=== PATIENT | male | born 1995 ===

== ENCOUNTER → 2017-01-30 15:05 | Emergency (ER) | payer SELFPAY | END | disposition home or self-care (01) | LOC: OHEAST 15:05 → UCEAST 15:05 | DX: Z00.00 Encounter for general adult medical examination without abnormal findings (principal) ==

== ENCOUNTER 2017-05-04 20:15 | Emergency (ER) | payer OTHER ==
[2017-05-04 20:27] VITALS: BP 118/62
--- NOTE | 2017-05-04 20:45 | UC ---
Syncope/New Syncope HPI - History Of Current Complaint Chief Complaint: UCHeadInjury Stated Complaint: HEAD INJURY Time Seen by Provider: 05/04/17 20:24 Hx Obtained From: Patient Onset/Duration: Sudden Onset, Resolved Activity At Onset: Other - WAS DRINKING A SODA HAD HICUPS Timing: Seconds Frequency: Episodes x___ - 1, Episodes Lasting ____ (in Mins/Days/Weeks/Years) - 5 SECONDS Context: Witnessed Associated Head Trauma: Yes Aggravating Factor(s): Nothing Alleviating Factor(s): Nothing Associated Signs And Symptoms: Positive: Headache. Negative: Chest Pain, Diaphoresis, Dizzy, GI Blood Loss, Head Trauma (Remote), Head Trauma (Recent), Lightheadedness, Numbness, Palpitations, Seizure, Shortness Of Breath, Vomiting , Weakness - Allergies/Home Medications Allergies/Adverse Reactions: Allergies Allergy/AdvReac Type Severity Reaction Status Date / Time No Known Allergies Allergy Verified 05/04/17 20:27 Home Medications: Home Medications NK [No Home Medications Reported] 05/04/17 [History Confirmed 05/04/17] PMH/Surg Hx/FS Hx/Imm Hx - Additional Past Medical History Additional PMH: HX OF CONCUSSION X 4 - Surgical History Surgical History: Yes Surgery Procedure, Year, and Place: sinus polyps x4. tonsillectomy - Family History Known Family History: Negative: Blood Disorder - Social History Alcohol Use: Occasionally Substance Use Type: None Smoking Status (MU): Never Smoked Tobacco Type: Smokeless Tobacco Review of Systems Constitutional: Negative Skin: Negative Eyes: Negative ENT: Negative Respiratory: Negative Cardiovascular: Negative Is Patient Immunocompromised?: No All Other Systems Reviewed And Are Negative: Yes Physical Exam Triage Information Reviewed: Yes Appearance: Well-Appearing, No Pain Distress, Well-Nourished Vital Signs: Initial Vital Signs Temp 99.3 F 05/04/17 20:20 Pulse 94 05/04/17 20:20 Resp 17 05/04/17 20:20 BP 118/62 05/04/17 20:20 Pulse Ox 99 05/04/17 20:20 Vital Signs Reviewed: Yes Eyes: Positive: Conjunctiva Clear ENT: Positive: Normal ENT inspection, Hearing grossly normal, Pharynx normal Neck: Positive: Supple, Nontender, No Lymphadenopathy Respiratory: Positive: Chest non-tender, Lungs clear, Normal breath sounds Cardiovascular: Positive: RRR, No Murmur, Pulses Normal Abdominal Exam: Normal Neurological: Positive: Alert, Muscle Tone Normal Skin Exam: Normal UC Physical Exam Vital Signs On Initial Exam: Initial Vitals Temp Pulse Resp BP Pulse Ox 99.3 F 94 17 118/62 99 05/04/17 20:20 05/04/17 20:20 05/04/17 20:20 05/04/17 20:20 05/04/17 20:20 - Neurological Exam Neurological: Normal, Sensory/Motor Intact, Alert, Oriented to Person Place, Time, CN Intact II-III, Reflexes Intact, Normal Gait, Facial Symmetry, Speech Normal Syncope Course/Dx - Differential Dx/Diagnosis Provider Diagnoses: SYNCOPE. CONTUSION HEAD Discharge - Discharge Plan Condition: Stable Disposition: HOME Patient Education Materials: Syncope (ED), Head Injury (ED) Referrals: No Primary Care Phys,NOPCP [Primary Care Provider] - If Needed Additional Instructions: SYNCOPE CONTUSION HEAD NO SIGNS OR SYMPTOMS OF CONCUSSION
== END 2017-05-04 20:50 | disposition home or self-care (01) ==
LOC: UCCORT 20:15
DX: S00.93XA Contusion of unspecified part of head, initial encounter (principal); W19.XXXA Unspecified fall, initial encounter; Y93.9 Activity, unspecified; Y92.9 Unspecified place or not applicable; R51 Headache; R55 Syncope and collapse
CPT/HCPCS: 99211; G0463